=== PATIENT | female | born 1955 | race Caucasian/White ===

== ENCOUNTER 2019-12-20 10:39 | Emergency (ER) | payer BC, OTHER ==
[~2019-12-20] VITALS: Ht 170 cm; Wt 49.5 kg
[2019-12-20] MEDS ORDERED: RT-ALBUTEROL/IPRATROPIUM 3 ML (DUONEB) VIAL ONE (10:52)
[2019-12-20] MEDS ORDERED: RT-ALBUTEROL/IPRATROPIUM 3 ML (DUONEB) VIAL INH ONE (11:00)
--- NOTE | 2019-12-20 11:08 | ED Dyspnea ---
General Chief Complaint: Fever-Adult/Adol Stated Complaint: GENERAL ACHING; COUGH; SOB Nursing Triage Note: Patient reports fever starting 2 days prior, with generalized body aches and increased SOA Source of Information: Patient Exam Limitations: No Limitations History of Present Illness Date Seen by Provider: Dec 20, 2019 Time Seen by Provider: 11:30 Initial Comments This patient is a 64-year-old female that presents to the emergency room complaining of shortness of breath. Patient states that she is a long-time smoker but has never been diagnosed with COPD. Patient states that she has a history of a 2 day low-grade fever. States is her initially her grandson was sick and then her was. Patient states that she just seems to be tight in the chest. Patient denies any significant fever or other than low-grade. Patient states that she's had some body aches. And cough. Will do medical evaluation tracing. Timing/Duration: Increasing Severity: Moderate Activities at Onset: None Prior Episodes/Possible Cause: No Prior Episodes Modifying Factors: Worse With Activity Allergies and Home Medications Allergies Coded Allergies: No Known Drug Allergies (Unverified , 12/20/19) Patient Home Medication List Home Medication List Reviewed: Yes Review of Systems Review of Systems Constitutional: no symptoms reported, see HPI; No chills, No diaphoresis, No dizziness; fever; No malaise, No weakness, No weight gain, No weight loss, No other EENTM: nose congestion, throat pain; No see HPI, No no symptoms reported, No ear discharge, No hearing loss, No ear pain, No blurred vision, No double vision, No eye pain, No tearing, No vision loss, No dental problems, No hoarseness, No mouth pain, No mouth swelling, No epistaxis, No nose pain, No throat swelling, No other Respiratory: no symptoms reported, see HPI, cough, dyspnea on exertion; No hemoptysis, No orthopnea, No phlegm; short of breath; No stridor, No wheezing, No other Cardiovascular: no symptoms reported; No see HPI, No chest pain, No edema, No Hx of Intervention, No palpitations, No syncope, No vascular heart diseas, No other Gastrointestinal: No RUQ, No LUQ, No RLQ, No LLQ; no symptoms reported; No see HPI, No abdominal pain, No constipation, No diarrhea, No dysphagia, No hematemesis, No heartburn, No jaundice, No loss of appetite, No melena, No nausea, No vomiting, No other Genitourinary: no symptoms reported; No see HPI, No decreased output, No discharge, No dysuria, No frequency, No hematuria, No hesitancy, No incontinence, No nocturia, No pain, No other : No Musculoskeletal: no symptoms reported, see HPI Skin: no symptoms reported; No see HPI, No change in color, No change in hair/nails, No dryness, No hx of skin cancer, No lesions, No lumps, No pruritus, No rash, No other Past Ervnzuo-Fxwqdo-Lxpvmv Hx Patient Social History Alcohol Use: Regular Use Alcohol Beverage of Choice: Beer Recreational Drug Use: No Smoking Status: Current Everyday Smoker Type Used: Cigarettes Recent Foreign Travel: No Contact w/Someone Who Travel: No Recent Infectious Disease Expo: No Past Medical History Surgeries: No Respiratory: No Cardiac: No Neurological: No Genitourinary: No Gastrointestinal: No Musculoskeletal: No Endocrine: No HEENT: No Cancer: No Psychosocial: No Integumentary: No Blood Disorders: No Physical Exam Vital Signs Vital Signs - First Documented 12/20/19 10:50 Temp 37.3 Pulse 89 Resp 18 B/P (MAP) 116/89 (98) Pulse Ox 93 Capillary Refill : Less Than 3 Seconds Height, Weight, BMI Height: '" Weight: lbs. oz. kg; 17.00 BMI Method: General Appearance: No Apparent Distress, WD/WN HEENT: PERRL/EOMI, TMs Normal, Normal ENT Inspection, Pharynx Normal Neck: Full Range of Motion, Normal Inspection, Non Tender Respiratory: Decreased Breath Sounds (tachypnea. No significant wheezing.) Gastrointestinal: Normal Bowel Sounds, Non Tender, Soft Skin: Normal Color, Warm/Dry; No Cool, No Cyanosis, No Damp, No Diaphoresis, No Ecchymosis, No Erythema, No Jaundice, No Mottled, No Pallor, No Petechia, No Rash, No Tattoos/Piercings, No Other Lymphatic: No Adenopathy Progress/Results/Core Measures Results/Orders Lab Results Laboratory Tests Test 12/20/19 11:05 Range/Units White Blood Count 3.8 L 4.3-11.0 10^3/uL Red Blood Count 5.05 4.35-5.85 10^6/uL Hemoglobin 15.1 11.5-16.0 G/DL Hematocrit 45 35-52 % Mean Corpuscular Volume 88 80-99 FL Mean Corpuscular Hemoglobin 30 25-34 PG Mean Corpuscular Hemoglobin Concent 34 32-36 G/DL Red Cell Distribution Width 13.1 10.0-14.5 % Platelet Count 179 130-400 10^3/uL Mean Platelet Volume 10.1 7.4-10.4 FL Neutrophils (%) (Auto) 72 42-75 % Lymphocytes (%) (Auto) 18 12-44 % Monocytes (%) (Auto) 9 0-12 % Eosinophils (%) (Auto) 1 0-10 % Basophils (%) (Auto) 1 0-10 % Neutrophils # (Auto) 2.8 1.8-7.8 X 10^3 Lymphocytes # (Auto) 0.7 L 1.0-4.0 X 10^3 Monocytes # (Auto) 0.3 0.0-1.0 X 10^3 Eosinophils # (Auto) 0.0 0.0-0.3 10^3/uL Basophils # (Auto) 0.0 0.0-0.1 10^3/uL Neutrophils % (Manual) 53 % Lymphocytes % (Manual) 20 % Monocytes % (Manual) 4 % Eosinophils % (Manual) 2 % Basophils % (Manual) 0 % Band Neutrophils 21 % Blood Morphology Comment NORMAL Sodium Level 134 L 135-145 MMOL/L Potassium Level 4.0 3.6-5.0 MMOL/L Chloride Level 96 L 98-107 MMOL/L Carbon Dioxide Level 24 21-32 MMOL/L Anion Gap 14 5-14 MMOL/L Blood Urea Nitrogen 10 7-18 MG/DL Creatinine 0.86 0.60-1.30 MG/DL Estimat Glomerular Filtration Rate > 60 BUN/Creatinine Ratio 12 Glucose Level 94 70-105 MG/DL Calcium Level 8.8 8.5-10.1 MG/DL Micro Results Microbiology 12/20/19 Influenza Types A,B Antigen (NORY) - Final, Complete My Orders Orders - GARRISON MENENDEZ MD Monitor-Rhythm Ecg Trace Only (12/20/19 10:51) Pulse Oximetry Order (12/20/19 10:51) Cbc And Manual Diff (12/20/19 10:51) Basic Metabolic Panel (12/20/19 10:51) Iv Heplock-Insert (Order) (12/20/19 10:51) Chest 1 View Ap/Pa Only (12/20/19 10:51) Pulse Oximetry Order (12/20/19 10:51) Rt Request For Service (12/20/19 10:51) Albuterol/Ipra Inhalation Soln (Duoneb I (12/20/19 11:00) Svn Small Volume Nebulizer (12/20/19 10:56) Albuterol/Ipra Inhalation Soln (Duoneb I (12/20/19 10:52) Influenza A And B Antigens (12/20/19 11:19) Medications Given in ED Current Medications Medications Dose Ordered Sig/Maria D Route Start Time Stop Time Status Last Admin Dose Admin Albuterol/ Ipratropium 3 ml ONCE ONCE INH 12/20/19 11:00 12/20/19 11:01 DC 12/20/19 10:59 3 ML Vital Signs/I&O 12/20/19 10:50 Temp 37.3 Pulse 89 Resp 18 B/P (MAP) 116/89 (98) Pulse Ox 93 Blood Pressure Mean: 98 Progress Progress Note : Time: 11:30 Progress Note Patient is much improved after DuoNeb updraft breathing easily lungs clear. Pulse ox 97% on room air. Patient has no complaints. Diagnostic Imaging Diagonstic Imaging: Xray Plain Films/CT/US/NM/MRI: chest Comments Clear lungs bilaterally. However does have an expanded lung volume consistent with emphysema. Reviewed: Reviewed by Me Counseling-Symptomatic: 3-10 Minutes Counseling-Asymptomatic: 3-10 minutes Discussed Options Including: Chantix, Group/Indiv Counseling, Nicotine Patch, Nicotine Gum Follow-up with PCP to: Discuss Further Options Departure Communication (Admissions) I discussed with the patient she states understanding of diagnosis and medication treatment patient be discharged home with family. Impression Primary Impression: Influenza Additional Impressions: Influenza-like symptoms COPD (chronic obstructive pulmonary disease) Disposition: 01 HOME, SELF-CARE Condition: Improved Departure-Patient Inst. Decision time for Depature: 11:56 Referrals: NO,LOCAL PHYSICIAN (PCP) Primary Care Physician Patient Instructions: COPD Including Emphysema (DC), Flu, Adult (DC) Add. Discharge Instructions: Encourage by mouth fluids get plenty rest limited by home care salt water gargles as needed. Take all your medications as prescribed. Follow-up with primary care physician and establish care. Understanding do appeared to be developing signs of COPD/emphysema. All discharge instructions reviewed with patient and/or family. Voiced understanding. Alfredo and prescriptions to be handed to the patient at discharge albuterol multidose inhaler, and Tamiflu,. GARRISON MENENDEZ MD Dec 20, 2019 11:07
[2019-12-20 11:15] LABS: BASOPHILS % (AUTO) 1 % (0-10); EOSINOPHILS % (AUTO) 1 % (0-10); HEMATOCRIT 45 % (35-52); HEMOGLOBIN 15.1 G/DL (11.5-16.0); LYMPHOCYTES # (AUTO) 0.7 X 10^3 (1.0-4.0); LYMPHOCYTES % (AUTO) 18 % (12-44); MEAN CORPUSCULAR HEMOGLOBIN 30 PG (25-34); MEAN CORPUSCULAR HGB CONC 34 G/DL (32-36); MEAN CORPUSCULAR VOLUME 88 FL (80-99); MEAN PLATELET VOLUME 10.1 FL (7.4-10.4); MONOCYTES # (AUTO) 0.3 X 10^3 (0.0-1.0); MONOCYTES % (AUTO) 9 % (0-12); NEUTROPHILS # (AUTO) 2.8 X 10^3 (1.8-7.8); NEUTROPHILS % (AUTO) 72 % (42-75); PLATELET COUNT 179 10^3/uL (130-400); RED CELL DISTRIBUTION WIDTH 13.1 % (10.0-14.5); WHITE BLOOD COUNT 3.8 10^3/uL (4.3-11.0)
--- NOTE | 2019-12-20 11:19 | Diagnostic Imaging Report ---
INDICATION: Bodyaches, fever, cough and congestion. FINDINGS: The lungs appear hyperinflated which suggest underlying COPD and air trapping. No focal consolidation or effusion is evident. There is no pneumothorax. Heart size and mediastinal contours appear appropriate and pulmonary vascularity appears normal. IMPRESSION: 1. Apparent background features of COPD without radiographic evidence of an acute superimposed cardiopulmonary process. Dictated by: Dictated on workstation # [id number]
[2019-12-20 11:34] LABS: CHLORIDE 96 MMOL/L (98-107); SODIUM 134 MMOL/L (135-145)
[2019-12-20 11:35] LABS: BUN/CREATININE RATIO 12; CALCIUM 8.8 MG/DL (8.5-10.1); CARBON DIOXIDE 24 MMOL/L (21-32); CREATININE SERUM 0.86 MG/DL (0.60-1.30); GFR ESTIMATED > 60; GLUCOSE 94 MG/DL (70-105)
[2019-12-20 11:41] LABS: BAND NEUTROPHILS 21 %; LYMPHOCYTES % (MANUAL) 20 %; NEUTROPHILS % (MANUAL) 53 %
[2019-12-20 11:42] LABS: BASOPHILS % (MANUAL) 0 %; EOSINOPHILS % (MANUAL) 2 %; MONOCYTES % (MANUAL) 4 %; RBC MORPH NORMAL
[2019-12-20 12:34] VITALS: BP 116/89
--- OUTSIDE RECORDS SUMMARY | 2019-12-23 08:45 | XMS REPORT | Continuity of Care Document ---
Author Organization Unknown Address Unknown Phone Unavailable Allergies Active Description Code Type Severity Reaction Onset Reported/Identified Relationship to Patient Clinical Status Yes No Known Drug Allergies [id number] Drug Allergy Unknown N/A 12/20/2019 Medications There is no data. Problems There is no data. Procedures There is no data. Results Test Result Range Blood CBC with ordered manual differenti al panel - 12/20/19 11:05 Blood leukocytes automated count (number/volume) 3.8 10*3/uL 4.3-11.0 Blood erythrocytes automated count (number/volume) 5.05 10*6/uL 4.35-5.85 Venous blood hemoglobin measurement (mass/volume) 15.1 g/dL 11.5-16.0 Blood hematocrit (volume fraction) 45 % 35-52 Automated erythrocyte mean corpuscular volume 88 [ foz_us] 80-99 Automated erythrocyte mean corpuscular h emoglobin (mass per erythrocyte) 30 pg 25-34 Automated erythrocyte mean corpuscular h emoglobin concentration measurement (mass/volume) 34 g/dL 32-36 Automated erythrocyte distribution width ratio 13. 1 % 10.0- 14.5 Automated blood platelet count (count/volume) 179 10*3/uL 130-400 Automated blood platelet mean volume measurement 10.1 [foz_us] 7.4-10.4 Automated blood neutrophils/100 leukocytes 72 % 42-75 Automated blood lymphocytes/100 leukocytes 18 % 12-44 Blood monocytes/100 leukocytes 4 % NRG Automated blood eosinophils/100 leukocytes 1 % 0-10 Automated blood basophils/100 leukocytes 1 % 0-10 Blood neutrophils automated count (number/volume) 2.8 10*3 1.8-7.8 Blood lymphocytes automated count (number/volume) 0.7 10*3 1.0-4.0 Blood monocytes automated count (number/volume) 0. 3 10*3 0.0-1.0 Automated eosinophil count 0.0 10*3/uL 0 .0-0.3 Automated blood basophil count (count/volume) 0.0 10*3/uL 0.0-0.1 Manual blood segmented neutrophils/100 leukocytes 53 % NRG Blood band neutrophils/100 leukocytes 21 % NRG Manual blood lymphocytes/100 leukocytes 20 % NRG Manual eosinophils/100 leukocytes in nose 2 % NRG Manual blood basophils/100 leukocytes 0 % NRG Blood erythrocyte morphology finding identification NORMAL NR Whole blood basic metabolic panel - 06/02 11:05 Serum or plasma sodium measurement (moles/volume) 134 mmol/L 135-145 Serum or plasma potassium measurement (moles/volume) 4.0 mmol/L 3.6-5.0 Serum or plasma chloride measurement (moles/volume) 96 mmol/L 98-107 Carbon dioxide 24 mmol/L 21-32 Serum or plasma anion gap determination (moles/volume) 14 mmol/L 5-14 Serum or plasma urea nitrogen measurement (mass/volume ) 10 mg/dL 7-18 Serum or plasma creatinine measurement (mass/volume) 0.86 mg/dL 0.60-1.30 Serum or plasma urea nitrogen/creatinine mass ratio 12 NRG Serum or plasma creatinine measurement w ith calculation of estimated glomerular filtration rate > NRG Serum or plasma glucose measurement (mass/volume) 94 mg/dL 70-105 Serum or plasma calcium measurement (mass/volume) 8.8 mg/dL 8.5-10.1 Influenza virus A and B antigen detectio n - 12/20/19 11:20 CALL POSITIVES (F1 HELP) [place] NR FLU RESULT POSITIVE FOR INFLUENZA B ANT IGEN, NEG FOR A ANTIGEN, BY IA NRG Encounters ACCT No. Visit Date/Time Discharge Status Pt. Type Provider Facility Loc./Unit Complaint [id number] 12/20/2019 10:42:00 020 12:34:00 DIS Emergency GEMMA FAJARDO, GARRISON Berrios [facility] FS GENERAL ACHING; COUGH; SOB
== END 2019-12-20 12:34 | disposition home or self-care (01) ==
LOC: ER FS 10:42
DX: J11.1 Influenza due to unidentified influenza virus with other respiratory manifestations (principal); J44.9 Chronic obstructive pulmonary disease, unspecified; F17.210 Nicotine dependence, cigarettes, uncomplicated
CPT/HCPCS: 36415; 71045; 80048; 85007; 85027; 87804

== ENCOUNTER 2021-05-21 22:06 | Emergency (ER) | payer BC ==
[~2021-05-21] VITALS: Ht 170 cm; Wt 54.4 kg
[2021-05-22] MEDS ORDERED: AZITHROMYCIN 250 MG TAB (ZITHROMAX) PO ONE
[2021-05-22] MEDS ORDERED: predniSONE 20 MG TAB PO ONE
[2021-05-22] MEDS ORDERED: RT-ALBUTEROL/IPRATROPIUM 3 ML (DUONEB) VIAL IH ONE
[2021-05-22 00:28] LABS: BASOPHILS % (AUTO) 1 % (0-10); EOSINOPHILS # (AUTO) 0.5 10^3/uL (0.0-0.3); EOSINOPHILS % (AUTO) 10 % (0-10); HEMATOCRIT 43 % (35-52); HEMOGLOBIN 14.7 g/dL (11.5-16.0); LYMPHOCYTES # (AUTO) 2.1 10^3/uL (1.0-4.0); LYMPHOCYTES % (AUTO) 43 % (12-44); MEAN CORPUSCULAR HEMOGLOBIN 31 pg (25-34); MEAN CORPUSCULAR HGB CONC 34 g/dL (32-36); MEAN CORPUSCULAR VOLUME 89 fL (80-99); MEAN PLATELET VOLUME 9.3 fL (9.0-12.2); MONOCYTES # (AUTO) 0.3 10^3/uL (0.0-1.0); MONOCYTES % (AUTO) 6 % (0-12); NEUTROPHILS # (AUTO) 1.9 10^3/uL (1.8-7.8); NEUTROPHILS % (AUTO) 40 % (42-75); PLATELET COUNT 263 10^3/uL (130-400); WHITE BLOOD COUNT 4.7 10^3/uL (4.3-11.0)
[2021-05-22 00:40] LABS: CHLORIDE 99 MMOL/L (98-107); POTASSIUM 4.2 MMOL/L (3.6-5.0); SODIUM 133 MMOL/L (135-145)
[2021-05-22 00:41] LABS: GLUCOSE 85 MG/DL (70-105)
[2021-05-22 00:43] LABS: CARBON DIOXIDE 23 MMOL/L (21-32)
[2021-05-22 00:45] LABS: CREATININE SERUM 0.82 MG/DL (0.60-1.30); GFR ESTIMATED 70
[2021-05-22 00:46] LABS: BUN/CREATININE RATIO 9
--- NOTE | 2021-05-22 00:56 | ED Cough/URI ---
General Chief Complaint: Respiratory Problems Stated Complaint: SOB / BELTRAN / DIARRHEA / COVID EXPOSED Nursing Triage Note: INTERMITTANT SOA, HEADACHE, DIARRHEA, X6 DAYS. EXPOSED TO COVID. Source: patient Exam Limitations: no limitations History of Present Illness Date Seen by Provider: May 21, 2021 Time Seen by Provider: 23:47 Initial Comments 66-year-old female with past medical history of COPD with continued smoking coming in due to 1 week of increasing shortness of breath with dry cough. She states she was around a Covid positive person 13 days ago and roughly 7 days ago began feeling short of breath. She is fully vaccinated. No fever, diarrhea, vomiting, weakness, numbness, chest pain. The shortness of breath includes a wheeze. She states she is been told she has COPD but no one has ever treated her for it. She states it feels worse when she smokes more. She does not use any medications including any inhalers. The shortness of breath is constant, worsening, better with rest. Allergies and Home Medications Allergies Coded Allergies: No Known Drug Allergies (Unverified , 12/20/19) Home Medications No Active Prescriptions or Reported Meds Patient Home Medication List Home Medication List Reviewed: Yes Review of Systems Review of Systems Constitutional: No fever EENTM: No blurred vision Respiratory: cough, short of breath Cardiovascular: No chest pain Gastrointestinal: No abdominal pain, No diarrhea, No nausea, No vomiting Genitourinary: No dysuria Musculoskeletal: No back pain Skin: No rash Psychiatric/Neurological: Denies Anxiety, Denies Depressed Hematologic/Lymphatic: No Symptoms Reported Immunological/Allergic: no symptoms reported All Other Systems Reviewed Negative Unless Noted: Yes Past Qhtyrql-Bkxggx-Xlusbs Hx Patient Social History Tobacco Use?: Yes Tobacco type used: Cigarettes Smoking Status: Current Everyday Smoker Use of E-Cig and/or Vaping dev: No Substance use?: No Alcohol Use?: Yes Alcohol Frequency: Several times a month Pt feels they are or have been: No Immunizations Up To Date First/Initial COVID19 Vaccinat: 11/15/20 Second COVID19 Vaccination Dhruv: 12/16/20 COVID19 Vaccine Talent Advisor: MODERNYasmin Past Medical History Surgery/Hospitalization HX: EYE, HTN, COPD Surgeries: No Respiratory: No Cardiac: No Neurological: No Genitourinary: No Gastrointestinal: No Musculoskeletal: No Endocrine: No HEENT: No Cancer: No Psychosocial: No Integumentary: No Blood Disorders: No Physical Exam Vital Signs - First Documented 05/21/21 23:50 Temp 36.3 Pulse 68 Resp 18 B/P (MAP) 178/103 (128) Pulse Ox 96 O2 Delivery Room Air Capillary Refill : Less Than 3 Seconds Height: '" Weight: lbs. oz. kg; 18.00 BMI Method: General Appearance: WD/WN, no apparent distress HEENT: PERRL/EOMI, normal ENT inspection, pharynx normal Neck: non-tender, full range of motion Respiratory: chest non-tender, no respiratory distress, no accessory muscle use, wheezing Cardiovascular: regular rate, rhythm, no edema, no murmur Gastrointestinal: normal bowel sounds, non tender, soft; No distended, No guarding, No rebound Neurologic/Psychiatric: no motor/sensory deficits, alert, normal mood/affect Skin: normal color, warm/dry Lymphatic: no adenopathy Progress/Results/Core Measures Suspected Sepsis SIRS Temperature: Pulse: 68 Respiratory Rate: 18 Laboratory Tests 05/22/21 00:13: White Blood Count 4.7 Blood Pressure 178 /103 Mean: 128 Laboratory Tests 05/22/21 00:13: Creatinine 0.82, Platelet Count 263 Results/Orders Lab Results Laboratory Tests Test 05/22/21 00:13 05/22/21 00:20 Range/Units White Blood Count 4.7 4.3-11.0 10^3/uL Red Blood Count 4.81 3.80-5.11 10^6/uL Hemoglobin 14.7 11.5-16.0 g/dL Hematocrit 43 35-52 % Mean Corpuscular Volume 89 80-99 fL Mean Corpuscular Hemoglobin 31 25-34 pg Mean Corpuscular Hemoglobin Concent 34 32-36 g/dL Red Cell Distribution Width 13.4 10.0-14.5 % Platelet Count 263 130-400 10^3/uL Mean Platelet Volume 9.3 9.0-12.2 fL Immature Granulocyte % (Auto) 0 % Neutrophils (%) (Auto) 40 L 42-75 % Lymphocytes (%) (Auto) 43 12-44 % Monocytes (%) (Auto) 6 0-12 % Eosinophils (%) (Auto) 10 0-10 % Basophils (%) (Auto) 1 0-10 % Neutrophils # (Auto) 1.9 1.8-7.8 10^3/uL Lymphocytes # (Auto) 2.1 1.0-4.0 10^3/uL Monocytes # (Auto) 0.3 0.0-1.0 10^3/uL Eosinophils # (Auto) 0.5 H 0.0-0.3 10^3/uL Basophils # (Auto) 0.0 0.0-0.1 10^3/uL Immature Granulocyte # (Auto) 0.0 0.0-0.1 10^3/uL Sodium Level 133 L 135-145 MMOL/L Potassium Level 4.2 3.6-5.0 MMOL/L Chloride Level 99 98-107 MMOL/L Carbon Dioxide Level 23 21-32 MMOL/L Anion Gap 11 5-14 MMOL/L Blood Urea Nitrogen 7 7-18 MG/DL Creatinine 0.82 0.60-1.30 MG/DL Estimat Glomerular Filtration Rate 70 BUN/Creatinine Ratio 9 Glucose Level 85 70-105 MG/DL Calcium Level 9.0 8.5-10.1 MG/DL Troponin I < 0.028 <0.028 NG/ML B-Type Natriuretic Peptide 29.7 <100.0 PG/ML SARS-CoV-2 RNA (RT-PCR) Not Detected Not Detecte My Orders Orders - THAO JOEL MD Basic Metabolic Panel (05/21/21 23:57) BNP (05/21/21 23:57) Cbc With Automated Diff (05/21/21 23:57) Troponin I (05/21/21 23:57) Monitor-Rhythm Ecg Trace Only (05/21/21 23:57) Pulse Oximetry Order (05/21/21 23:57) Rt Request For Service (05/21/21 23:57) Prednisone Tablet (Deltasone Tablet) (05/22/21 00:00) Albuterol/Ipra Inhalation Soln (Duoneb I (05/22/21 00:00) Azithromycin Tablet (Zithromax Tablet) (05/22/21 00:00) Ekg Tracing (05/21/21 23:57) Covid 19 Inhouse Test (05/22/21 00:22) Chest Pa/Lat (2 View) (05/22/21 01:00) Medications Given in ED Current Medications Medications Dose Ordered Sig/Maria D Route Start Time Stop Time Status Last Admin Dose Admin Albuterol/ Ipratropium 3 ml ONCE ONCE IH 05/22/21 00:00 05/22/21 00:01 DC 05/22/21 00:21 3 ML Azithromycin 500 mg ONCE ONCE PO 05/22/21 00:00 05/22/21 00:01 DC 05/22/21 00:19 500 MG Prednisone 40 mg ONCE ONCE PO 05/22/21 00:00 05/22/21 00:01 DC 05/22/21 00:19 40 MG Vital Signs/I&O 05/21/21 23:50 Temp 36.3 Pulse 68 Resp 18 B/P (MAP) 178/103 (128) Pulse Ox 96 O2 Delivery Room Air Capillary Refill : Less Than 3 Seconds Blood Pressure Mean: 128 Progress Note : Progress Note 66-year-old female with above history coming in due to shortness of breath. ABCs were intact and vitals were stable on presentation. Physical exam was significant for wheezing in all lung mcneill. She has a body habitus of someone with chronic COPD as well. Chest x-ray ordered and on my interpretation without any obvious pneumothorax or obvious pneumonia. She was given a DuoNeb, steroids, and azithromycin. I heavily favor this is a COPD exacerbation over Covid. She has no signs of heart disease or previous history of it, however to further assess we will obtain an EKG, troponin, BNP, and chest x-ray. EKG without any ischemic changes. Troponin negative, BNP within normal limits, chest x-ray without any obvious pneumonia or pneumothorax. There are there are obvious signs on chest x-ray of COPD. On reassessment after the DuoNeb, she sounded significantly better with clear lung sounds and she felt significantly better. I believe this is a COPD exacerbation. Vitals remained stable. Covid is negative. I believe she is stable for discharge with outpatient management of her COPD exacerbation. She was sent home with strict return precautions. ECG Initial ECG Impression Date: May 22, 2021 Initial ECG Impression Time: 00:05 Initial ECG Rate: 59 Initial ECG Rhythm: Normal Sinus Comment Normal sinus rhythm with a rate of 59, narrow QRS, borderline normal axis, no significant ST changes or T wave abnormalities Departure Impression Primary Impression: COPD exacerbation Disposition: HOME, SELF-CARE Condition: Stable Departure-Patient Inst. Decision time for Depature: 01:41 Referrals: NO,LOCAL PHYSICIAN (PCP/Family) Primary Care Physician Patient Instructions: COPD Exacerbation, Adult ED Add. Discharge Instructions: You were seen in the emergency department because you are feeling short of breath. Your lungs sounded wheezy all over. You were given an albuterol treatment, steroids, and an antibiotic. Your Covid test is negative. You should continue these prescriptions for the next 5 days. Follow-up with your primary care provider as I believe you likely need to be on medications for COPD. If you have any other concerns, worsening shortness of breath then please come back to the emergency department. All discharge instructions reviewed with patient and/or family. Voiced understanding. Scripts No Active Prescriptions or Reported Meds THAO JOEL MD May 22, 2021 00:56
[2021-05-22] MEDS ORDERED: AZIT250T12 PO (01:44)
[2021-05-22] MEDS ORDERED: PRD20T PO (01:44)
[2021-05-22] MEDS ORDERED: RT-ALBUINH INH (01:44)
[2021-05-22 01:45] VITALS: BP 147/88
--- NOTE | 2021-05-22 06:00 | Diagnostic Imaging Report ---
EXAMINATION: Chest 2 view HISTORY: shortness of breath, COPD COMPARISON: 12/20/2019 FINDINGS: Heart size and pulmonary vasculature are normal. There is hyperexpansion of the lungs. There is bibasilar pleural thickening. No consolidation, pleural effusion, or pneumothorax. The osseous structures are intact. IMPRESSION: 1. Stable background findings of COPD without other acute radiographic abnormality in the chest. Dictated by: Dictated on workstation # [id number]
== END 2021-05-22 01:48 | disposition home or self-care (01) ==
LOC: EDUNIT# 22:06 → ER 22:08
DX: J44.1 Chronic obstructive pulmonary disease with (acute) exacerbation (principal); F17.210 Nicotine dependence, cigarettes, uncomplicated; Z20.822 Contact with and (suspected) exposure to COVID-19
CPT/HCPCS: 36415; 71046; 80048; 83880; 84484; 85025; 87636; 93005; 93041

== ENCOUNTER 2021-06-25 18:38 | Emergency (ER) | payer BC ==
[~2021-06-25 18:38] MED LIST: AZIT250T12 PO; PRD20T PO; RT-ALBUINH INH
--- NOTE | 2021-06-25 18:46 | ED Dyspnea ---
General Stated Complaint: SOB History of Present Illness Date Seen by Provider: Jun 25, 2021 Time Seen by Provider: 18:44 Initial Comments 66-year-old female presents with shortness of breath. Patient reports that she is "been struggling" for quite a while. Patient was seen May 22 in June 06 for COPD exacerbations and given medication. She reports that she did good after the last visit for about a week and then her symptoms started up again. She denies any fevers chills nausea vomiting. Patient reports she is fully vaccinated for COVID-19. She is not having chest pain. No other systemic complaints. Allergies and Home Medications Allergies Coded Allergies: No Known Drug Allergies (Unverified , 12/20/19) Patient Home Medication List Home Medication List Reviewed: Yes Albuterol Sulfate (Ventolin Hfa) 1 Puff Puff, 2 PUFF INH Q4H Prescribed by: THAO JOEL on 05/22/21143 Albuterol Sulfate (Proventil Hfa) 6.7 Gm Hfa.aer.ad, 2 PUFF INH Q6H Prescribed by: JEROME PHELPS on 06/25/212032 Azithromycin (Azithromycin) 250 Mg Tablet, 250 MG PO DAILY Prescribed by: THAO JOEL on 05/22/21143 Benzonatate (Tessalon Perles) 100 Mg Capsule, 100 MG PO TID Prescribed by: JEROME PHELPS on 06/25/212032 Prednisone (Prednisone) 20 Mg Tab, 40 MG PO DAILY Prescribed by: THAO JOEL on 05/22/21143 Prednisone (Prednisone) 20 Mg Tab, 40 MG PO DAILY Prescribed by: JEROME PHELPS on 06/25/212032 Tiotropium Eolia (Spiriva Respimat 2.5MCG/ACTUATION) 4 Gm Mist.inhal, 2 PUFF IH DAILY Prescribed by: JEROME PHELPS on 06/25/211951 Review of Systems Review of Systems Constitutional: No chills, No fever Respiratory: short of breath Cardiovascular: No chest pain, No palpitations Gastrointestinal: No abdominal pain, No nausea, No vomiting Musculoskeletal: no symptoms reported Skin: no symptoms reported Psychiatric/Neurological: No Symptoms Reported Endocrine: No Symptoms Reported Hematologic/Lymphatic: No Symptoms Reported Past Llnsfaf-Pqlgci-Tcssbn Hx Past Medical History Surgery/Hospitalization HX: EYE, HTN, COPD Surgeries: No Respiratory: No Cardiac: No Neurological: No Genitourinary: No Gastrointestinal: No Musculoskeletal: No Endocrine: No HEENT: No Cancer: No Psychosocial: No Integumentary: No Blood Disorders: No Physical Exam Vital Signs Vital Signs - First Documented 06/25/21 18:45 Temp 37.3 Pulse 90 Resp 20 B/P (MAP) 179/86 (117) Pulse Ox 90 O2 Delivery Room Air Capillary Refill : Height, Weight, BMI Height: '" Weight: lbs. oz. kg; 18.00 BMI Method: General Appearance: No Apparent Distress, WD/WN Respiratory: Decreased Breath Sounds Cardiovascular: Regular Rate, Rhythm, No Edema Extremity: Normal Capillary Refill Neurologic/Psychiatric: Alert, Oriented x3, Normal Mood/Affect, surveillance specialist II-XII Norm as Tested Skin: Normal Color, Warm/Dry Progress/Results/Core Measures Results/Orders Lab Results Laboratory Tests Test 06/25/21 19:22 06/25/21 19:28 Range/Units White Blood Count 4.5 4.3-11.0 10^3/uL Red Blood Count 4.65 3.80-5.11 10^6/uL Hemoglobin 14.2 11.5-16.0 g/dL Hematocrit 42 35-52 % Mean Corpuscular Volume 90 80-99 fL Mean Corpuscular Hemoglobin 31 25-34 pg Mean Corpuscular Hemoglobin Concent 34 32-36 g/dL Red Cell Distribution Width 13.8 10.0-14.5 % Platelet Count 258 130-400 10^3/uL Mean Platelet Volume 9.5 9.0-12.2 fL Immature Granulocyte % (Auto) 0 % Neutrophils (%) (Auto) 39 L 42-75 % Lymphocytes (%) (Auto) 33 12-44 % Monocytes (%) (Auto) 8 0-12 % Eosinophils (%) (Auto) 19 H 0-10 % Basophils (%) (Auto) 1 0-10 % Neutrophils # (Auto) 1.8 1.8-7.8 X 10^3 Lymphocytes # (Auto) 1.5 1.0-4.0 X 10^3 Monocytes # (Auto) 0.3 0.0-1.0 X 10^3 Eosinophils # (Auto) 0.9 H 0.0-0.3 10^3/uL Basophils # (Auto) 0.0 0.0-0.1 10^3/uL Immature Granulocyte # (Auto) 0.0 0.0-0.1 10^3/uL Neutrophils % (Manual) 39 % Lymphocytes % (Manual) 36 % Monocytes % (Manual) 7 % Eosinophils % (Manual) 17 % Sodium Level 137 135-145 MMOL/L Potassium Level 4.5 3.6-5.0 MMOL/L Chloride Level 103 98-107 MMOL/L Carbon Dioxide Level 24 21-32 MMOL/L Anion Gap 10 5-14 MMOL/L Blood Urea Nitrogen 6 L 7-18 MG/DL Creatinine 0.77 0.60-1.30 MG/DL Estimat Glomerular Filtration Rate 75 BUN/Creatinine Ratio 8 Glucose Level 118 H 70-105 MG/DL Calcium Level 9.0 8.5-10.1 MG/DL Corrected Calcium 8.8 8.5-10.1 MG/DL Total Bilirubin 0.2 0.1-1.0 MG/DL Aspartate Amino Transf (AST/SGOT) 20 5-34 U/L Alanine Aminotransferase (ALT/SGPT) 15 0-55 U/L Alkaline Phosphatase 102 40-136 U/L Total Protein 6.8 6.4-8.2 GM/DL Albumin 4.3 3.2-4.5 GM/DL My Orders Orders - PHELPS,JEROME L DO Chest Pa/Lat (2 View) (06/25/21 18:54) Albuterol/Ipra Inhalation Soln (Duoneb I (06/25/21 19:00) Svn Small Volume Nebulizer (06/25/21 18:54) Cbc With Automated Diff (06/25/21 18:54) Comprehensive Metabolic Panel (06/25/21 18:54) Magnesium 1 Gm/100 Ml Ivpb (Magnesium Nieves (06/25/21 19:00) Covid 19 Inhouse Test (06/25/21 18:54) Influenza A And B By Pcr (06/25/21 18:54) Manual Differential (06/25/21 19:22) Magnesium 1 Gm/100 Ml Ivpb (Magnesium Nieves (06/25/21 19:44) Albuterol Pre-Mix Nebs (Rt) (Proventil (06/25/21 19:54) Dexamethasone Injection (Decadron Inje (06/25/21 20:00) Svn Small Volume Nebulizer (06/25/21 19:54) Benzonatate Capsule (Tessalon Perles) (06/25/21 20:00) Medications Given in ED Current Medications Medications Dose Ordered Sig/Maria D Route Start Time Stop Time Status Last Admin Dose Admin Albuterol/ Ipratropium 3 ml ONCE ONCE INH 06/25/21 19:00 06/25/21 19:01 DC 06/25/21 19:18 3 ML Dexamethasone Sodium Phosphate 10 mg ONCE ONCE IV 06/25/21 20:00 06/25/21 20:01 DC 06/25/21 20:01 10 MG Vital Signs/I&O 06/25/21 06/25/21 18:45 20:45 Temp 37.3 Pulse 90 85 Resp 20 18 B/P (MAP) 179/86 (117) 158/87 Pulse Ox 90 89 O2 Delivery Room Air Room Air Progress Progress Note : Progress Note Patient with COPD and emphysema. Patient is only been on rescue inhalers and rescue treatment. While in the ER patient's oxygen ran 87 about 90-91. I did recommend admission for COPD to help get it under control due to her oxygen status. Patient declined admission. She reports that she feels a lot better. I do imagine that her normal oxygen level is probably 87-88 at her baseline and patient would likely benefit from home oxygen therapy. I did start her on Spiriva since she is not on any long-term COPD medication. I will give her a couple days of steroids, Tessalon Perles for her cough and refill her albuterol inhaler. Patient states that if her symptoms return and she gets worse that she will come back to the ER for admission. Patient stable upon discharge Diagnostic Imaging Diagonstic Imaging: Xray Plain Films/CT/US/NM/MRI: chest Comments CHEST PA/LAT (2 VIEW) EXAMINATION: Chest 2 view. HISTORY: Shortness of breath. COPD. COMPARISON: 05/22/2021. FINDINGS: The lung volumes are hyperexpanded. No focal consolidation is seen. No large pleural effusion or pneumothorax is seen. The cardiomediastinal silhouette is normal in size and contour. No acute osseous abnormality is seen. IMPRESSION: Hyperexpanded lungs, consistent with a history of COPD. No focal consolidation or mass. Departure Impression Primary Impression: Chronic bronchitis with pulmonary emphysema Disposition: HOME, SELF-CARE Condition: Stable Departure-Patient Inst. Referrals: NO,LOCAL PHYSICIAN (PCP/Family) Primary Care Physician Patient Instructions: Risk Factors for COPD, Chronic Obstructive Pulmonary Disease (COPD), Including Emphysema, Medicines for Chronic Obstructive Pulmonary Disease (COPD), PULMONARY REHAB Add. Discharge Instructions: Please call Saturday morning to establish care with her primary care provider for your long-term management of your COPD Return to the ER if symptoms worsen Scripts Benzonatate (TESSALON PERLES) 100 Mg Capsule 100 MG PO TID, #15 CAP Prov: SANA PHELPSR L DO 06/25/21 Albuterol Sulfate (Proventil Hfa) 6.7 Gm Hfa.aer.ad 2 PUFF INH Q6H for SHORTNESS OF BREATH, #1 EACH Prov: SANA PHELPSR L DO 06/25/21 Prednisone (Prednisone) 20 Mg Tab 40 MG PO DAILY, #6 TAB 0 Refills Prov: SANA PHELPSR L DO 06/25/21 Tiotropium Eolia (Spiriva Respimat 2.5MCG/ACTUATION) 4 Gm Mist.inhal 2 PUFF IH DAILY, #1 EA Prov: MORALES PHELPSVOR L DO 06/25/21 SANA PHELPSR L DO Jun 25, 2021 18:45
[2021-06-25] MEDS ORDERED: RT-ALBUTEROL/IPRATROPIUM 3 ML (DUONEB) VIAL INH ONE (19:00)
[2021-06-25] MEDS: MAGNESIUM 1 GM/100 ML IVPB 100 ML IV SCH ×2 (19:18→19:51)
[2021-06-25 19:29] LABS: HEMATOCRIT 42 % (35-52); HEMOGLOBIN 14.2 g/dL (11.5-16.0); MEAN CORPUSCULAR HEMOGLOBIN 31 pg (25-34); MEAN CORPUSCULAR VOLUME 90 fL (80-99); WHITE BLOOD COUNT 4.5 10^3/uL (4.3-11.0)
[2021-06-25 19:30] LABS: BASOPHILS % (AUTO) 1 % (0-10); EOSINOPHILS # (AUTO) 0.9 10^3/uL (0.0-0.3); EOSINOPHILS % (AUTO) 19 % (0-10); LYMPHOCYTES # (AUTO) 1.5 X 10^3 (1.0-4.0); LYMPHOCYTES % (AUTO) 33 % (12-44); MEAN CORPUSCULAR HGB CONC 34 g/dL (32-36); MEAN PLATELET VOLUME 9.5 fL (9.0-12.2); MONOCYTES # (AUTO) 0.3 X 10^3 (0.0-1.0); MONOCYTES % (AUTO) 8 % (0-12); NEUTROPHILS # (AUTO) 1.8 X 10^3 (1.8-7.8); NEUTROPHILS % (AUTO) 39 % (42-75); PLATELET COUNT 258 10^3/uL (130-400)
--- NOTE | 2021-06-25 19:35 | Diagnostic Imaging Report ---
EXAMINATION: Chest 2 view. HISTORY: Shortness of breath. COPD. COMPARISON: 05/22/2021. FINDINGS: The lung volumes are hyperexpanded. No focal consolidation is seen. No large pleural effusion or pneumothorax is seen. The cardiomediastinal silhouette is normal in size and contour. No acute osseous abnormality is seen. IMPRESSION: Hyperexpanded lungs, consistent with a history of COPD. No focal consolidation or mass. Dictated by: Dictated on workstation # [id number]
[2021-06-25 19:41] LABS: EOSINOPHILS % (MANUAL) 17 %; LYMPHOCYTES % (MANUAL) 36 %; MONOCYTES % (MANUAL) 7 %; NEUTROPHILS % (MANUAL) 39 %
[2021-06-25] MEDS ORDERED: MAGNESIUM 1 GM/100 ML IVPB 100 ML IV ONE (19:44)
[2021-06-25 19:45] LABS: POTASSIUM 4.5 MMOL/L (3.6-5.0)
[2021-06-25 19:46] LABS: ALBUMIN 4.3 GM/DL (3.2-4.5); BILIRUBIN,TOTAL 0.2 MG/DL (0.1-1.0); CREATININE SERUM 0.77 MG/DL (0.60-1.30); TOTAL PROTEIN 6.8 GM/DL (6.4-8.2)
[2021-06-25] MEDS ORDERED: TIOT4MIS2 IH (19:52)
[2021-06-25] MEDS ORDERED: RT-ALBUTEROL SULF 2.5 MG/3 ML PRE-MIX VIAL INH STA (19:54)
[2021-06-25] MEDS ORDERED: BENZONATATE 100 MG (TESSALON) CAPSULE PO SCH (20:00)
[2021-06-25] MEDS ORDERED: BENZ100C18 PO (20:33)
[2021-06-25] MEDS ORDERED: PRD20T PO (20:33)
[2021-06-25] MEDS ORDERED: RT-ALBUINH INH (20:33)
[2021-06-25 20:45] VITALS: BP 158/87
== END 2021-06-25 20:46 | disposition home or self-care (01) ==
LOC: EDUNIT# 18:38 → ER FS 18:40
DX: J44.9 Chronic obstructive pulmonary disease, unspecified (principal); I10 Essential (primary) hypertension; Z20.822 Contact with and (suspected) exposure to COVID-19
CPT/HCPCS: 36415; 71046; 80053; 85007; 85027; 87636

== ENCOUNTER → 2021-08-01 | Outpatient (CLI) | payer BC ==
[~2021-08-01] MED LIST changes: +BENZ100C18 PO; +TIOT4MIS2 IH
--- NOTE | 2021-08-01 14:01 | Diagnostic Imaging Report ---
PROCEDURE: CT chest without contrast. TECHNIQUE: Multiple contiguous axial images were obtained through the chest without the use of intravenous contrast. Auto Exposure Controls were utilized during the CT exam to meet ALARA standards for radiation dose reduction. DATE: August 01, 2021. COMPARISON: Chest radiograph June 25, 2021. INDICATION: 66-year-old female, shortness of breath. PROCEDURE: Axial noncontrasted CT images of the chest. Noncontrasted limits the evaluation of the mediastinum and vascular structures. FINDINGS: There is mild pleural parenchymal scarring in the lung apices. There are mild upper lobe predominant findings of centrilobular emphysema. There is no identified pulmonary nodule or lung mass. There is no additional focal airspace consolidation. There is no pneumothorax. There is no pleural effusion. The central airways are patent. The heart is not enlarged. There is no pericardial effusion. There is no abnormally enlarged mediastinal or axillary lymph node meeting CT size criteria for adenopathy. Limited evaluation of the imaged portions of the upper abdomen is grossly unremarkable. There is no identified acute bony abnormality. IMPRESSION: 1. Mild upper lobe predominant findings of centrilobular emphysema. 2. No identified pulmonary nodule or lung mass. 3. No acute cardiopulmonary abnormality. Dictated by: Dictated on workstation # [id number]
== END ==
LOC: RAD FS 12:59
PROVIDERS: ATTEND Nurse Practitioner Family
DX: J43.9 Emphysema, unspecified (principal); Z87.891 Personal history of nicotine dependence
CPT/HCPCS: 71250